=== PATIENT | female | born 1965 | race Caucasian/White ===

== ENCOUNTER 2023-10-16 18:47 | Emergency (ER) | payer OTHER ==
[2023-10-16 19:01] VITALS: RESP 18; BMI 28.3
[2023-10-16] MEDS ORDERED: METOCLOPRAMIDE HCL 10 MG TABLET (FP) PO ONE ×2 (20:26→20:51)
[2023-10-16] MEDS ORDERED: ACETAMINOPHEN 500 MG TABLET (FP) PO ONE (20:26)
[2023-10-16] MEDS ORDERED: ACETAMINOPHEN 325 MG TABLET (FP) ONE (20:51)
[2023-10-16 22:08] VITALS: BP 120/60; PULSE 65; TEMP 98
== END 2023-10-16 22:08 | disposition home or self-care (01) ==
LOC: JER 18:47
DX: R51.9 Headache, unspecified (principal); Z20.822 Contact with and (suspected) exposure to COVID-19
CPT/HCPCS: 0241U-QW; 70450-TC; 99284-25